=== PATIENT | female | born 1955 | race Caucasian/White ===

== ENCOUNTER 2016-09-14 05:56 | Day surgery (SDC) | payer MEDICAID ==
[2016-09-14] MEDS ORDERED: LIDOCAINE 1% 2 ML INJ ONE (06:11)
[2016-09-14] MEDS ORDERED: LR 1,000 ML IV ONE (06:46)
[2016-09-14] MEDS ORDERED: MIDAZOLAM 2 MG/2 ML VIAL ONE (07:10)
[2016-09-14] MEDS ORDERED: fentaNYL 100 MCG/2 ML INJ ONE (07:11)
[2016-09-14] MEDS ORDERED: PROPOFOL/EMULSION 500 MG/50 ML BOTTLE IV ONE (07:11)
--- NOTE | 2016-09-14 08:41 | GPN ---
[f rep st] PROCEDURE NOTE PREPROCEDURE DIAGNOSES: 1. Heartburn. 2. Average risk screening colonoscopy. POSTPROCEDURE DIAGNOSES: 1. EGD with biopsy. 2. Colonoscopy with snare and injection. ANESTHESIA: Monitored anesthesia care. INDICATIONS: The patient is a 61-year-old female with a history of longstanding heartburn who recen tly increased her Nexium to 20 mg orally twice per day. Her symptoms are better controlled with thi s increased dose of medication. She has never had a colonoscopy. She is at average risk for screen ing colonoscopy. The risks and the benefits of the procedure were discussed with the patient and co nsent obtained. Risks include, but not limited to, bleeding, perforation, and risks associated with sedation. The patient is ASA class 2. DESCRIPTION OF PROCEDURE: The end-viewing endoscope was inserted into the esophagus, into the stoma ch and second portion of the duodenum. The esophagus appears normal. The Z-line is irregular and l ocated at 36 cm from the incisors. Biopsies were taken using cold biopsy forceps to evaluate for Ba rrett's. The stomach appears normal. Retroflexed views in the stomach were normal. Biopsies were taken of the gastric antrum to evaluate for Helicobacter pylori using cold biopsy forceps. The duod enum and second portion were normal. Biopsies were taken using cold biopsy forceps to evaluate for celiac disease. The patient was then repositioned and the adult colonoscope was advanced into the terminal ileum, wh ich appeared normal. The appendiceal orifice and cecum were normal. In the ascending colon, just d istal to the ileocecal valve, there is a 1.3 cm flat polyp. The lesion was removed in 3 pieces usin g piecemeal polypectomy technique and hot snare. The polyp appeared to be completely removed. Two hemoclips were placed over the defect to close the site. A tattoo was placed at the site to elsa th e piecemeal polypectomy site. The remaining ascending colon, hepatic flexure, transverse colon, spl enic flexure, and descending colon were normal. There was a 4 mm sessile polyp in the sigmoid colon removed using cold snare polypectomy. The rectum was normal. Retroflexed views showed internal he morrhoids, grade 1. External hemorrhoids were found on rectal exam. IMPRESSION: 1. Piecemeal polypectomy of ascending colon polyp, status post hemoclip placement and tattoo. 2. Small sigmoid colon polyp, status post cold snare polypectomy. 3. Internal and external hemorrhoids. RECOMMENDATIONS: 1. Discharged home with escort. 2. Advance diet as tolerated. 3. Follow up on the final pathology results. Results available within 10 days. 4. Repeat colonoscopy with monitored anesthesia at the hospital in 6 months given piecemeal polypec toshia and possibly for argon plasma coagulation. Thank you for allowing me to participate in the care of your patient. Please do not hesitate to daylin frias with questions. /[id number]/MODL
== END 2016-09-14 10:20 | disposition home health service (06) ==
LOC: FSGY 05:56
PROVIDERS: ATTEND Internal Medicine Gastroenterology
DX: K63.5 Polyp of colon (principal); K64.8 Other hemorrhoids; K64.4 Residual hemorrhoidal skin tags
CPT/HCPCS: J2250; J2704; J3010

== ENCOUNTER 2017-05-16 11:55 | Day surgery (SDC) | payer MEDICAID ==
[2017-05-16] MEDS ORDERED: LIDOCAINE 1% 2 ML INJ ID PRN (12:17)
[2017-05-16] MEDS ORDERED: LR 1,000 ML IV ONE (12:17)
[2017-05-16] MEDS ORDERED: LIDOCAINE 1% 2 ML INJ ONE (12:20)
[2017-05-16] MEDS ORDERED: ALBUTEROL 3 ML DEYVIAL IH PRN (13:42)
[2017-05-16] MEDS ORDERED: LR 500 ML IV PRN (13:42)
[2017-05-16] MEDS ORDERED: NALOXONE HCL 0.4 MG/ML INJ IVP PRN (13:42)
[2017-05-16] MEDS ORDERED: ONDANSETRON 4 MG/2 ML VIAL IVP PRN (13:42)
[2017-05-16] MEDS ORDERED: DEXAMETHASONE 4 MG/ML VIAL IVP PRN (13:42)
--- NOTE | 2017-05-16 13:42 | PDANEPAE ---
ANE Past Medical History - Cardiovascular History Hx Hypertension: No Hx Arrhythmias: No Hx Chest Pain: No Hx Coronary Artery / Peripheral Vascular Disease: No Hx CHF / Valvular Disease: No Hx Palpitations: No Cardiovascular History Comment: HYPERLIPIDEMIA - Pulmonary History Hx COPD: No Hx Asthma/Reactive Airway Disease: Yes Hx Recent Upper Respiratory Infection: No Hx Oxygen in Use at Home: No Hx Sleep Apnea: No Sleep Apnea Screening Result - Last Documented: Negative Pulmonary History Comment: SENSITIVE TO SCENTS & SEASONAL - Neurologic History Hx Cerebrovascular Accident: No Hx Seizures: No Hx Dementia: No - Endocrine History Hx Diabetes: No - Renal History Hx Renal Disorders: Yes Renal History Comment: MILD STRESS INCONT. - Liver History Hx Hepatic Disorders: No - Neurological & Psychiatric Hx Hx Neurological and Psychiatric Disorders: No - Cancer History Hx Cancer: No - Congenital Disorder History Hx Congenital Disorders: No - GI History Hx Gastrointestinal Disorders: Yes Gastrointestinal History Comment: GERD. HX OF COLON POLYPS. INTERMITTENT DIARRHEA/FECAL INCONT. - Other Health History Other Health History: FELL INJURING RT SHLDR 11/2016. RESIDUAL ISSUES WITH ROM CONT. TO DO PHYSICAL THERAPY - Chronic Pain History Chronic Pain: Yes (RT SHLDR) - Surgical History Prior Surgeries: EGD/COLONOSCOPY 08/2015. R KNEE X6. R TKA. HAND R. TONSILLECTOMY ANE Review of Systems Review of Systems: - Exercise capacity METS (RN): 4 METS ANE Patient History - Allergies Allergies/Adverse Reactions: aspirin [Aspirin] Allergy (Verified 04/26/17 14:19) NAUSEA bacitracin [Bacitracin] Allergy (Verified 04/26/17 14:20) Rash codeine Allergy (Verified 08/16/16 14:14) GI UPSET - Home Medications Home Medications: PARoxetine HCL HS 12/16/10 [Last Taken 05/14/17] Atorvastatin Calcium HS 08/16/16 [Last Taken 05/14/17] Celebrex BID 08/16/16 [Last Taken 05/15/17 20:00] Claritin BID 08/16/16 [Last Taken 05/14/17 23:00] Herbals/Supplements -Info Only DAILY 08/16/16 [Last Taken 2 Weeks Ago ~05/02/17] Nexium DAILY06 08/16/16 [Last Taken 05/15/17 20:00] Proair Hfa IH PRN 08/16/16 [Last Taken 2 Months Ago ~03/16/17] - Smoking Hx Smoking Status: Former smoker - Family Anes Hx Family Hx Anesthesia Complications: NEG ANE Labs/Vital Signs - Vital Signs Blood Pressure: 100/80 Heart Rate: 84 Respiratory Rate: 15 O2 Sat (%): 94 Height: 156.21 cm Weight: 86.183 kg ANE Physical Exam - Airway Neck exam: FROM Mallampati Score: Class 1 Mouth exam: normal dental/mouth exam - Pulmonary Pulmonary: no respiratory distress, no rales or rhonchi, clear to auscultation - Cardiovascular Cardiovascular: regular rate and rhythym, no murmur, rub, or gallop - ASA Status ASA Status: III ANE Anesthesia Plan Anesthesia Plan: GA with mask
--- NOTE | 2017-05-16 13:42 | PDGENHP ---
History & Physical Chief Complaint: polyp History of Present Illness: 61 year old female presents for surveillance of a ascending colon polyp. Pertinent Past, Social, Family History: PMHx: DJD, asthma, reflux Relevant Physical Exam: HEENT: Anicteric. CV: RRR +s1s2. Lungs: CTAB. Abd; soft, nt, + bs Cardiorespiratory Assessment: ASA 2
[2017-05-16] MEDS ORDERED: PROPOFOL/EMULSION 500 MG/50 ML BOTTLE IV ONE (13:44)
[2017-05-16] MEDS ORDERED: NS 500 ML IV SCH (13:45)
--- NOTE | 2017-05-16 14:43 | POSTANESTH ---
Post Anesthetic Evaluation Cardiovascular Status: Normal, Stable, Similar to Pre-Op Cond Respiratory Status: Normal, Stable, Similar to Pre-op Cond. Level of Consciousness/Mental Status: Can Participate in Eval Pain Control: Adequate, Prn Tx Ordered Nausea/Vomiting Control: Adequate, Prn Tx Ordered Complications Possibly Related to Anesthesia: None Noted
--- NOTE | 2017-05-16 14:45 | GIREPORT ---
[facility] Surgical Services - Endoscopy Department Patient Name: Pratibha Kim Procedure Date: 05/16/2017 1:36 PM Patient Type: Outpatient Attending MD/ ER Physician: Carlos Petersen MD Procedure: Colonoscopy Indications: High risk colon cancer surveillance: Personal history of colonic polyps Patient Profile: 61 year old female presents for surveillance of a complex polyp in the ascending colon Providers: Carlos Petersen MD Medicines: Monitored Anesthesia Care Complications: No immediate complications. Estimated blood loss: Minimal. Description of Procedure: After obtaining informed consent, the scope was passed under direct vis ion. Throughout the procedure, the patient's blood pressure, pulse, and oxyg en saturations were monitored continuously. The Colonoscope with irrigatio n channel was introduced through the anus and advanced to the cecum, identified by appendiceal orifice and ileocecal valve. The colonoscopy was performed without difficulty. The patient tolerated the procedure well. The quality of the bowel preparation was good. The ileocecal valve, appendi ceal orifice, and rectum were photographed. Findings: The perianal and digital rectal examinations were normal. Pertinent negatives include no palpable rectal lesions. A 7 mm polyp was found in the sigmoid colon. The polyp was sessile. The polyp was removed with a hot snare. Resection and retrieval were comple te. A 2 mm polyp was found in the ascending colon. The polyp was sessile. T he polyp was removed with a cold biopsy forceps. Resection and retrieval w ere complete. A 25 mm polyp was found in the ascending colon. The polyp was sessile. The polyp was removed with a saline injection-lift technique using a hot sn are. The polyp was removed with a piecemeal technique using a hot snare. Resection and retrieval were complete. Estimated Blood Loss: Estimated blood loss was minimal. Post Op Diagnosis: - One 7 mm polyp in the sigmoid colon, removed with a hot snare. Resect ed and retrieved. - One 2 mm polyp in the ascending colon, removed with a cold biopsy for ceps. Resected and retrieved. - One subtle 25 mm polyp in the ascending colon, removed using injection-lift and a hot snare and removed piecemeal using a hot snare. Resected and retrieved. - The prior polypectomy site was seen and no remnant polyp was visualiz ed. Recommendation: - Discharge patient to home (with escort). - Resume previous diet. - Continue present medications. - Repeat colonoscopy in 3 months for surveillance. - Use fiber, for example Citrucel, Fibercon, Konsyl or Metamucil. - Thank you for allowing me to participate in the care of your patient. Attending Participation: I personally performed the entire procedure. Carlos Petersen MD Carlos Petersen MD 05/16/2017 2:45:28 PM This report has been signed electronicallyCarlos Petersen MD Number of Addenda: 0 Note Initiated On: 05/16/2017 1:36 PM Total Procedure Duration Time 0 hours 20 minutes 14 seconds [email or web address]
[2017-05-16 14:53] VITALS: RESP 14
[2017-05-16 15:00] VITALS: TEMP 97.9
[2017-05-16 15:02] VITALS: BP 123/73; PULSE 66; O2SAT 96
== END 2017-05-16 15:23 | disposition home or self-care (01) ==
LOC: FSGY 11:55
PROVIDERS: ATTEND Internal Medicine Gastroenterology
PROC: 0DBK8ZX Excision of Ascending Colon, Via Natural or Artificial Opening Endoscopic, Diagnostic (ICD-10-PCS; principal; 2017-05-16 13:30)
PROC: 0DBN8ZX Excision of Sigmoid Colon, Via Natural or Artificial Opening Endoscopic, Diagnostic (ICD-10-PCS; principal; 2017-05-16 13:30)
DX: D12.5 Benign neoplasm of sigmoid colon (principal); D12.2 Benign neoplasm of ascending colon
CPT/HCPCS: J2704

== ENCOUNTER → 2018-05-15 | Outpatient (CLI) | payer MEDICAID ==
[~2018-05-15] MED LIST: GADOBUTROL 10 ML VIAL IVP ONE
== END ==
LOC: FIMAGING 05:49
PROVIDERS: ATTEND Psychiatry & Neurology Neurology
DX: M48.02 Spinal stenosis, cervical region (principal); M99.71 Connective tissue and disc stenosis of intervertebral foramina of cervical region; M99.72 Connective tissue and disc stenosis of intervertebral foramina of thoracic region; M50.322 Other cervical disc degeneration at C5-C6 level; M12.88 Other specific arthropathies, not elsewhere classified, other specified site; M43.12 Spondylolisthesis, cervical region; R94.02 Abnormal brain scan
CPT/HCPCS: A9585

== ENCOUNTER → 2018-05-17 | Outpatient (CLI) | payer MEDICAID | LOC: CIMAGING 13:19 | PROVIDERS: ATTEND Internal Medicine Pulmonary Disease | DX: R06.00 Dyspnea, unspecified (principal); R05 Cough | CPT/HCPCS: 71046-PO ==

== ENCOUNTER → 2018-06-18 | Outpatient (CLI) | payer MEDICAID | LOC: FCPNEURO 20:00 | PROVIDERS: ATTEND Psychiatry & Neurology Sleep Medicine | DX: G47.33 Obstructive sleep apnea (adult) (pediatric) (principal); G47.31 Primary central sleep apnea; G47.34 Idiopathic sleep related nonobstructive alveolar hypoventilation ==

== ENCOUNTER 2018-10-11 10:12 | Emergency (ER) | payer MEDICAID | END 2018-10-11 12:19 | disposition home or self-care (01) | LOC: CED 10:12 ==